=== PATIENT | male | born 1955 | race Two or more races ===

== ENCOUNTER 2024-01-12 07:16 | Day surgery (SDC) | payer MEDICARE, OTHER ==
[2024-01-12] MEDS ORDERED: ALBUTEROL SULFATE 2.5 MG/0.5 ML NEB SOLUTION NEB ONE (07:17)
[2024-01-12] MEDS ORDERED: LIDOCAINE 2% 11 ML JELLY TP ONE (07:17)
[2024-01-12] MEDS ORDERED: LIDOCAINE 4% 50 ML SOLUTION TP ONE (07:17)
[2024-01-12] MEDS ORDERED: LEVALBUTEROL 1.25 MG/0.5 ML NEB SOLUTION NEB ONE (07:17)
[2024-01-12] MEDS ORDERED: BENZOCAINE 20% 50 MCG/SPRAY 57 GM TP ONE (07:17)
[2024-01-12] MEDS ORDERED: MIDAZOLAM HCL 2 MG/2 ML VIAL ONE (07:55)
[2024-01-12] MEDS ORDERED: FentaNYL CITRATE PF 100 MCG/2 ML VIAL ONE (07:56)
[2024-01-12] MEDS: SODIUM CHLORIDE 0.9% 1,000 ML IV ONE (09:22)
[2024-01-12 09:35] VITALS: PULSE 63; RESP 16; O2SAT 100
[2024-01-12] MEDS: FentaNYL CITRATE PF 100 MCG/2 ML VIAL IVP ONE (09:37)
[2024-01-12] MEDS: MIDAZOLAM HCL 2 MG/2 ML VIAL IVP ONE (09:37)
[2024-01-12] MEDS ORDERED: MethylPREDNISolone SOD SUCC 125 MG/2 ML VIAL ONE (09:41)
[2024-01-12 09:57] LABS: GLUCOMETER DEV NAME(LOC) SDS.; GLUCOSE,POINT OF CARE 99 MG/DL (70-110)
[2024-01-12] MEDS: MethylPREDNISolone SOD SUCC 125 MG/2 ML VIAL IVP ONE (10:07)
== END 2024-01-12 16:14 | disposition home or self-care (01) ==
LOC: SURGERY 07:16
PROVIDERS: ATTEND Internal Medicine Critical Care Medicine
DX: R05.3 Chronic cough (principal); R06.2 Wheezing; R49.0 Dysphonia; R04.2 Hemoptysis; R91.8 Other nonspecific abnormal finding of lung field; J38.4 Edema of larynx; B37.0 Candidal stomatitis; I10 Essential (primary) hypertension; E11.9 Type 2 diabetes mellitus without complications; Z79.84 Long term (current) use of oral hypoglycemic drugs; Z79.899 Other long term (current) drug therapy; Z95.5 Presence of coronary angioplasty implant and graft
CPT/HCPCS: 31623; 82962; 87206; 87101; 87220; 87070; 31624; 94640; 71045; 87015; J3010; J2250; J2919; 88108; J7613; Z7610